=== PATIENT | female | born 1955 | race Caucasian/White ===

== ENCOUNTER 2016-04-11 15:39 | Inpatient (IN) | payer BC, OTHER ==
[~2016-04-11] VITALS: Ht 154.9 cm; Wt 50.2 kg
[2016-04-11 16:20] VITALS: BP 126/60; PULSE 100; RESP 13; TEMP 99.6; O2SAT 97
[2016-04-11] MEDS ORDERED: HYDR500C2 PO (16:30)
[2016-04-11] MEDS ORDERED: DEXI60CA PO (16:30)
[2016-04-11] MEDS ORDERED: SODIUM CHLORIDE 0.9% FLUSH 5 ML FLUSH IVF PRN (16:30)
[2016-04-11] MEDS ORDERED: PROT40TA PO (16:30)
--- NOTE | 2016-04-11 16:32 | PD ---
HPI Chief Complaint: Eye Problems/Injury Time Seen by Provider: 16:32 Travel History International Travel<30 days: No Contact w/Intl Traveler<30days: No Traveled to known affect area: No History of Present Illness HPI 60-year-old female with history of a clotting disorder similar to polycythemia vera, COPD, continues to smoke tobacco cigarettes, hypertension, PUD/gastritis, presents to emergency department for evaluation of acute painless blindness in her right eye at 3:30 today. 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 She denies any other focal deficits or weakness. Patient states she has had some nausea and vomiting over the last 3 days with a little bit of diarrhea. Nonbloody in nature. States that with her gastritis she does have episodes of vomiting since this caused her to not be concerned. Denies any chest pain or tightness. No difficulty breathing. No recent illnesses, fever, or chills. She has no other symptoms to report. PFS Past Medical History Blood Disorders: Yes COPD: Yes GERD: Yes Medical other: Yes (clotting disorder) ?: Not Social History Alcohol Use: No Tobacco Use: Yes (pack per day) Substance Use: No Allergies-Medications (Allergen,Severity, Reaction): Coded Allergies: Erythromycin (Verified Allergy, Unknown, 04/11/16) Penicillin (Verified Allergy, Unknown, 04/11/16) Sudafed (Verified Allergy, Unknown, 04/11/16) Reported Meds & Prescriptions Reported Meds & Active Scripts Active Reported Protonix (Pantoprazole Sodium) 40 Mg Tab 40 Mg PO DAILY Dexilant (Dexlansoprazole) 60 Mg Cap 60 Mg PO DAILY Hydroxyurea 500 Mg Cap 500 Mg PO DAILY Review of Systems Except as stated in HPI: all other systems reviewed are Neg Physical Exam Narrative GENERAL: Well-nourished female patient, a no acute distress SKIN: Warm and dry. HEAD: Atraumatic. Normocephalic. EYES: Pupils equal and round reactive. No scleral icterus. No injection or drainage. Assessment of the right eyes peripheral vision reveals patient unable to see midline peripherally. I am unable to do an adequate ophthalmic examination due to pupil constriction. ENT: No nasal bleeding or discharge. Mucous membranes pink and moist. NECK: Trachea midline. No JVD. CARDIOVASCULAR: Regular rate and rhythm. No murmur appreciated. RESPIRATORY: No accessory muscle use. Diminished, coarse cough to auscultation. Breath sounds equal bilaterally. GASTROINTESTINAL: Abdomen soft, non-tender, nondistended. Hepatic and splenic margins not palpable. MUSCULOSKELETAL: No obvious deformities. No clubbing. No cyanosis. No edema. NEUROLOGICAL: Awake and alert. No pronator drift. Equal strength bilaterally. Motor grossly within normal limits. Normal speech. PSYCHIATRIC: Appropriate mood and affect; insight and judgment normal. Data Data Last Documented VS Vital Signs Date Time Temp Pulse Resp B/P Pulse Ox O2 Delivery O2 Flow Rate FiO2 04/11/16 16:20 99.6 100 13 126/[address] Brain W/O Iv Contrast(Rout) (04/11/16 ) Electrocardiogram (04/11/16 16:28) Prothrombin Time / Inr (Pt) (04/11/16 16:28) Act Partial Throm Time (Ptt) (04/11/16 16:28) Complete Blood Count With Diff (04/11/16 16:28) Basic Metabolic Panel (Bmp) (04/11/16 16:28) Creatine Kinase (Cpk) (04/11/16 16:28) Troponin I (04/11/16 16:28) Urinalysis - C+S If Indicated (04/11/16 16:28) Ecg Monitoring (04/11/16 16:28) Iv Access Insert/Monitor (04/11/16 16:28) Oximetry (04/11/16 16:28) Sodium Chloride 0.9% Flush (Ns Flush) (04/11/16 16:30) Atropine 1% Opth Soln (Atropine 1% Opth (04/11/16 18:00) Aspirin (Aspirin) (04/11/16 18:15) Admit Order (Ed Use Only) (04/11/16 18:02) Consult Neurology (04/11/16 ) Heparin-D5w Inj (Heparin-D5w Inj) (04/11/16 18:15) Cbc No Diff, Includes Plts (04/14/16 06:00) (Hub Use Only)Inp Phy Cons/Ref (04/11/16 ) Consult Ophthalmology (04/13/16 ) Labs Laboratory Tests Test 04/11/16 16:59 White Blood Count 23.1 TH/MM3 Red Blood Count 4.31 MIL/MM3 Hemoglobin 15.6 GM/DL Hematocrit 47.3 % Mean Corpuscular Volume 109.5 FL Mean Corpuscular Hemoglobin 36.2 PG Mean Corpuscular Hemoglobin 33.0 % Concent Red Cell Distribution Width 15.2 % Platelet Count 443 TH/MM3 Mean Platelet Volume 7.9 FL Neutrophils (%) (Auto) 84.9 % Lymphocytes (%) (Auto) 6.7 % Monocytes (%) (Auto) 8.0 % Eosinophils (%) (Auto) 0.1 % Basophils (%) (Auto) 0.3 % Neutrophils # (Auto) 19.6 TH/MM3 Lymphocytes # (Auto) 1.5 TH/MM3 Monocytes # (Auto) 1.8 TH/MM3 Eosinophils # (Auto) 0.0 TH/MM3 Basophils # (Auto) 0.1 TH/MM3 CBC Comment DIFF FINAL Differential Comment Prothrombin Time 10.4 SEC Prothromb Time International 0.9 RATIO Ratio Activated Partial 28.9 SEC Thromboplast Time Sodium Level 138 MEQ/L Potassium Level 3.9 MEQ/L Chloride Level 104 MEQ/L Carbon Dioxide Level 26.3 MEQ/L Anion Gap 8 MEQ/L Blood Urea Nitrogen 20 MG/DL Creatinine 1.19 MG/DL Estimat Glomerular Filtration 46 ML/MIN Rate Random Glucose 97 MG/DL Calcium Level 8.9 MG/DL Total Creatine Kinase 53 U/L Troponin I 2.61 NG/ML MDM Medical Decision Making Medical Screen Exam Complete: Yes Emergency Medical Condition: Yes Medical Record Reviewed: Yes Differential Diagnosis TIA versus CVA versus retinopathy versus vaso-occlusive disease versus electrode abnormality versus neoplasm Narrative Course 60-year-old female presents to emergency department for evaluation. Patient appears without distress. She does have blindness of the right eye midline peripherally. She otherwise appears well. There are no other focal deficits or weakness. CT imaging of the brain is without acute intracranial abnormality. CBC is with leukocytosis of 23.1, platelet count 443, patient states that she always has leukocytosis. BMP is with mildly elevated creatinine 1.19 and GFR 46. Troponin is elevated at 2.61. EKG was normal sinus rhythm without any ST depression or elevation. I discussed the patient with my attending physician Dr. Whitfield he was also assessed the patient and reviewed lab findings. A call has been placed to neurology. Ophthalmology consult has been placed however coverage is not available until April 13. I spoke with Dr. Amaya, neurology on-call. He recommends a stroke workup, but not a stroke alert. He does not recommend TPA at this time. Patient will be started on heparin drip. I discussed the patient with Dr. valles. Patient will be admitted to [facility]. Diagnosis Primary Impression: Acute blindness Additional Impressions: Elevated troponin COPD (chronic obstructive pulmonary disease) Qualified Code: J44.9 - Chronic obstructive pulmonary disease, unspecified COPD type Tobacco abuse Admitting Information Admitting Physician Requests: Admit Condition: Stable Zoila Mckeon Apr 11, 2016 16:32
[2016-04-11 17:08] LABS: AUTOMATED NEUTROPHIL # 19.6 TH/MM3 (1.8-7.7); BASOPHIL # 0.1 TH/MM3 (0-0.2); BASOPHIL % 0.3 % (0.0-2.0); EOSINOPHIL % 0.1 % (0.0-4.0); HEMATOCRIT 47.3 % (35.0-46.0); HEMO FLAGS DIFF FINAL; LYMPH % 6.7 % (9.0-44.0); LYMPHOCYTE # 1.5 TH/MM3 (1.0-4.8); MEAN CELL VOLUME 109.5 FL (80.0-100.0); MEAN CORPUSCULAR HEMOGLOBIN 36.2 PG (27.0-34.0); NEUT % 84.9 % (16.0-70.0); PLATELET COUNT 443 TH/MM3 (150-450); RED BLOOD COUNT 4.31 MIL/MM3 (4.00-5.30); RED CELL DISTRIBUTION WIDTH 15.2 % (11.6-17.2); WHITE BLOOD COUNT 23.1 TH/MM3 (4.0-11.0)
[2016-04-11 17:22] LABS: APTT (PATIENT) 28.9 SEC (24.3-30.1); INTERNATIONAL NORMALIZED RATIO 0.9 RATIO; PROTHROMBIN TIME - PATIENT 10.4 SEC (9.8-11.6)
[2016-04-11 17:25] LABS: BICARBONATE 26.3 MEQ/L (21.0-32.0); POTASSIUM 3.9 MEQ/L (3.5-5.1)
--- NOTE | 2016-04-11 17:36 | RADRPT ---
EXAM DATE/TIME: 04/11/2016 17:17 [facility] COMPARISON: No previous studies available for comparison. INDICATIONS : Sudden onset of right sided blindness, now resolved. RADIATION DOSE: 56.35 CTDIvol (mGy) MEDICAL HISTORY : None SURGICAL HISTORY : None. ENCOUNTER: Initial ACUITY: 1 day PAIN SCALE: 0/10 LOCATION: cranial TECHNIQUE: Multiple contiguous axial images were obtained of the head. Using automated exposure control and adj ustment of the mA and/or kV according to patient size, radiation dose was kept as low as reasonably a chievable to obtain optimal diagnostic quality images. FINDINGS: CEREBRUM: The ventricles are normal for age. No evidence of midline shift, mass lesion, hemorrhage or acute in farction. No extra-axial fluid collections are seen. POSTERIOR FOSSA: The cerebellum and brainstem are intact. The 4th ventricle is midline. The cerebellopontine angle i s unremarkable. EXTRACRANIAL: The visualized portion of the orbits is intact. High right jugular bulb. SKULL: The calvaria is intact. No evidence of skull fracture. CONCLUSION: Negative noncontrast CT brain. Roldan Gregg MD on April 11, 2016 at 17:33 Board Certified Radiologist. This report was verified electronically.
[2016-04-11] MEDS ORDERED: ATROPINE SULFATE 1% OPHT SOLN 2 ML BTL EACH EYE ONE (18:00)
[2016-04-11] MEDS: ASPIRIN 325 MG TAB PO ONE ×2 (18:07→18:15)
[2016-04-11] MEDS ORDERED: HEPARIN-D5W INJ 250 ML IV SCH ×2 (18:15→18:30)
[2016-04-11] MEDS ORDERED: NALOXONE HCL 0.4 MG/ML AMP IV PRN (18:30)
[2016-04-11] MEDS ORDERED: ACETAMINOPHEN/HYDROcodone 325 MG/7.5 MG TAB PO PRN (18:30)
[2016-04-11] MEDS ORDERED: SODIUM CHLORIDE 0.9% FLUSH 5 ML FLUSH FLUSH PRN (18:30)
[2016-04-11] MEDS ORDERED: MORPHINE SULFATE 4 MG/ML INJ IV PRN (18:30)
[2016-04-11] MEDS ORDERED: ONDANSETRON HCL 4 MG/2 ML VIAL IVP PRN (18:30)
[2016-04-11] MEDS ORDERED: HEPARIN SODIUM - IV 10,000 UNITS/10 ML VIAL IV ONE (18:30)
[2016-04-11] MEDS ORDERED: DOCUSATE SODIUM 100 MG CAP PO PRN (18:30)
[2016-04-11] MEDS ORDERED: MAGNESIUM HYDROXIDE SUSP 30 ML CUP PO PRN (18:30)
[2016-04-11] MEDS ORDERED: ACETAMINOPHEN/HYDROcodone 325 MG/5 MG TAB PO PRN (18:30)
[2016-04-11] MEDS ORDERED: ENALAPRILAT 1.25 MG/ML VIAL IV PRN (18:45)
[2016-04-11 18:47] VITALS: BP 129/70; PULSE 85; RESP 17; O2SAT 97
--- NOTE | 2016-04-11 18:53 | HHI.HP ---
[facility] Primary Care Physician No Primary Care Physician Admission Diagnosis Acute R eye blindness; R/O CVA; NSTEMI Diagnoses: Chief Complaint: R eye blindness, nausea/diarrhea Travel History International Travel<30 Days: No Contact w/Intl Traveler <30 Da: No Traveled to Known Affected Are: No History of Present Illness 60-year-old female with history of polycythemia vera, hyperhomocystinemia, essential thrombocytopenia, GERD/gastritis, COPD, tobacco use, presents with acute onset of right eye blindness today. The patient reports she has chronic GI problems with nausea, however on Sunday 04/09, started having acute onset of nausea/vomiting/diarrhea and low back pain; no significant abdominal pain. She has been taking her Phenergan every 6 hours with some relief. 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 No eye pain and she has never had problems with her vision in the past. She denies any headache, lightheadedness, dizziness, slurred speech, unilateral numbness/weakness, or gait abnormalities. Since her arrival to the ER, head CT was unremarkable, however troponin 2.61, EKG negative for acute ischemic changes. The patient denies recalling any recent chest pains, palpitations, shortness of breath. She states her GI flareups are similar to this one. Her vision is slowly improving while in the ER, however still has a right sided visual deficit. She was previously on aspirin/Plavix, however this was stopped a few years ago and she now takes hydroxyurea. She follows with manual writer Dr. Leroy. She does not see any circus supervisor or neurologist. She has no other medical complaints at this time. Review of Systems Constitutional: DENIES: Diaphoretic episodes, Fatigue, Fever, Chills, Dizziness Endocrine: DENIES: Polydipsia, Polyuria, Polyphagia Eyes: COMPLAINS OF: Blurred vision, Vision loss, DENIES: Diplopia, Eye inflammation, Eye pain, Double Vision Ears, nose, mouth, throat: DENIES: Throat pain, Ear Pain, Running Nose, Odynophagia Respiratory: DENIES: Cough, Shortness of breath Cardiovascular: DENIES: Chest pain, Palpitations, Syncope, Lower Extremity Edema Gastrointestinal: COMPLAINS OF: Diarrhea, Nausea, Vomiting, DENIES: Abdominal pain, Constipation Genitourinary: DENIES: Urinary frequency, Urgency, Dysuria Musculoskeletal: COMPLAINS OF: Back pain, DENIES: Joint pain, Neck pain Integumentary: DENIES: Pruritus, Rash Hematologic/lymphatic: DENIES: Bruising, Lymphadenopathy Immunologic/allergic: DENIES: Eczema, Urticaria Neurologic: DENIES: Abnormal gait, Headache, Localized weakness, Paresthesias, Speech Problems Psychiatric: DENIES: Anxiety, Depression Past Family Social History Past Medical History polycythemia vera hyperhomocystinemia essential thrombocytopenia GERD/gastritis COPD Past Surgical History Umbilical hernia repair Colonoscopy in 2010 Breast implants Reported Medications Protonix (Pantoprazole Sodium) 40 Mg Tab 40 Mg PO DAILY Dexilant (Dexlansoprazole) 60 Mg Cap 60 Mg PO DAILY Hydroxyurea 500 Mg Cap 500 Mg PO DAILY Allergies: Coded Allergies: Erythromycin (Verified Allergy, Unknown, 04/11/16) Penicillin (Verified Allergy, Unknown, 04/11/16) Sudafed (Verified Allergy, Unknown, 04/11/16) Active Ordered Medications Current Medications Medications (Trade) Dose Ordered Sig/Nestor Route Start Time Stop Time Status Last Admin (NS Flush) 2 ml UNSCH PRN IVF 04/11/16 16:30 (Heparin Inj) 5,000 units UNSCH PRN IV 04/12/16 00:30 Heparin Sodium (Porcine) 2500 units 2,500 units UNSCH PRN IV 04/12/16 00:30 (Heparin-D5W Inj) 250 ml @ 0 mls/hr TITRATE IV 04/11/16 18:30 (NS Flush) 2 ml UNSCH PRN FLUSH 04/11/16 18:30 UNV Family History Mother with diabetes, obesity, heart problems Father with dysphagia requiring feeding tube Social History Smokes tobacco 1 PPD since age 15 Denies any alcohol or illicit drug use Physical Exam Vital Signs Vital Signs Date Time Temp Pulse Resp B/P Pulse Ox O2 Delivery O2 Flow Rate FiO2 04/11/16 16:20 99.6 100 13 126/60 97 Room Air Physical Exam GENERAL: Well-nourished, well-developed thin female patient in NAD. SKIN: Warm and dry. No rash. HEAD: Normocephalic. Atraumatic. EYES: Pupils equal and round. No scleral icterus. No injection or drainage. Right lateral eye visual field defect. EOMI. ENT: No nasal bleeding or discharge. Mucous membranes pink and moist. NECK: Supple. Trachea midline. CARDIOVASCULAR: Regular rate and rhythm. S1, S2 noted. No murmur appreciated. RESPIRATORY: No accessory muscle use. Clear to auscultation. Breath sounds equal bilaterally. GASTROINTESTINAL: Abdomen soft, non-tender, nondistended. Normoactive bowel sounds x4. MUSCULOSKELETAL: No obvious deformities. Extremities without clubbing, cyanosis , or edema. NEUROLOGICAL: Awake and alert. No obvious cranial nerve deficits. Motor grossly within normal limits. 5/5 muscle strength in bilateral upper and lower extremities. Normal speech. PSYCHIATRIC: Appropriate mood and affect; insight and judgment normal. Laboratory Laboratory Tests Test 04/11/16 16:59 White Blood Count 23.1 Red Blood Count 4.31 Hemoglobin 15.6 Hematocrit 47.3 Mean Corpuscular Volume 109.5 Mean Corpuscular Hemoglobin 36.2 Mean Corpuscular Hemoglobin 33.0 Concent Red Cell Distribution Width 15.2 Platelet Count 443 Mean Platelet Volume 7.9 Neutrophils (%) (Auto) 84.9 Lymphocytes (%) (Auto) 6.7 Monocytes (%) (Auto) 8.0 Eosinophils (%) (Auto) 0.1 Basophils (%) (Auto) 0.3 Neutrophils # (Auto) 19.6 Lymphocytes # (Auto) 1.5 Monocytes # (Auto) 1.8 Eosinophils # (Auto) 0.0 Basophils # (Auto) 0.1 CBC Comment DIFF FINAL Differential Comment Prothrombin Time 10.4 Prothromb Time International 0.9 Ratio Activated Partial 28.9 Thromboplast Time Sodium Level 138 Potassium Level 3.9 Chloride Level 104 Carbon Dioxide Level 26.3 Anion Gap 8 Blood Urea Nitrogen 20 Creatinine 1.19 Estimat Glomerular Filtration 46 Rate Random Glucose 97 Calcium Level 8.9 Total Creatine Kinase 53 Troponin I 2.61 Result Diagram: 04/11/16 1659 04/11/16 1659 Imaging Last Impressions Head CT 04/11/16 0000 Signed Impressions: Service Date/Time: Monday, April 11, 2016 17:17 - CONCLUSION: Negative noncontrast CT brain. Roldan Gregg MD Assessment and Plan Problem List: (1) Acute blindness ICD Code: H54.7 Status: Acute (2) Elevated troponin ICD Code: R79.89 Status: Acute (3) NSTEMI (non-ST elevated myocardial infarction) ICD Code: I21.4 Status: Acute (4) COPD (chronic obstructive pulmonary disease) ICD Code: J44.9 Status: Chronic (5) Tobacco abuse ICD Code: Z72.0 Status: Chronic Assessment and Plan 60-year-old female with history of polycythemia vera, hyperhomocystinemia, essential thrombocytopenia, GERD/gastritis, COPD, tobacco use, presents with acute onset of right eye blindness today 04/11 at 3:30pm. NSTEMI: no chest pains however troponin 2.61. EKG reviewed, no acute ST-T changes. Started on Heparin Drip. Admit to [facility]. Monitor on telemetry. Check serial cardiac enzymes and EKG. Lipid panel, HgbA1c. IV Morphine prn. Cardiology Consult. Acute renal failure: I am unable to find previous labs in the system. Probably secondary to dehydration. Will hydrate with IVF and follow BMP in AM. Right Eye Blindness: suspect CVA. Head CT images reviewed, unremarkable. Check Brain MRI and Carotid U/S. On Heparin drip as above. Consult neurology and consult ophthalmology. Neuro checks. NIHSS. Monitor on tele. Polycythemia vera, Hyperhomocystinemia, Essential thrombocytopenia: On hydroxyurea. Followed with Dr. Leroy as outpatient, will consult. Nausea/Vomiting/Diarrhea: acute on chronic GI upset per the patient. Continue PPI, antiemetics and pain control prn. Tobacco Use: counseled on cessation. Avoid nicotine patch due to vasoconstriction. DVT Prophylaxis: on Heparin drip Written by Ilsa Alvares, acting as scribe for Dr. De La Rosa on 04/11/16 at 18: 52. The documentation accurately reflects the work performed [id number] by me on 04/11/16 at 1852. Discussed Condition With Patient, Patient's spouse at bedside, ER FENG, SOLOMON KEARNEY Physician Certification 2 Midnight Certification Type: Admission for Inpatient Services Order for Inpatient Services The services are ordered in accordance with Medicare regulations or non- Medicare payer requirements, as applicable. In the case of services not specified as inpatient-only, they are appropriately provided as inpatient services in accordance with the 2-midnight benchmark. Estimated LOS (days): 3 days is the estimated time the patient will need to remain in the hospital, assuming treatment plan goals are met and no additional complications. Post-Hospital Plan: Home Problem Qualifiers (1) COPD (chronic obstructive pulmonary disease): Qualified Code: J44.9 - Chronic obstructive pulmonary disease, unspecified COPD type Ilsa Alvares PA-C Apr 11, 2016 18:53 Kuldeep De La Rosa MD Apr 11, 2016 19:24
--- NOTE | 2016-04-11 19:10 | PD ---
Physical Exam Date Seen by Provider: Apr 11, 2016 Time Seen by Provider: 17:30 Narrative I, Dr. Durant, have reviewed the advance practice practitioner's documentation and am in agreement, met with the patient face to face, made the diagnosis, and the medical decision making was done by me. *My assessment and Findings: Patient is seen and evaluated with nurse practitioner, please see practitioner note for further details. Here with painless vision loss in the lateral part of her visual field the right eye. Denies any chest pains or any other symptoms. Pulmonary cardiac enzymes are unremarkable. Pupils are equal, round, react to light bilaterally. Extraocular movements are intact. Laboratory Tests Test 04/11/16 16:59 White Blood Count 23.1 TH/MM3 (4.0-11.0) Hemoglobin 15.6 GM/DL (11.6-15.3) Hematocrit 47.3 % (35.0-46.0) Mean Corpuscular Volume 109.5 FL (80.0-100.0) Mean Corpuscular Hemoglobin 36.2 PG (27.0-34.0) Neutrophils (%) (Auto) 84.9 % (16.0-70.0) Lymphocytes (%) (Auto) 6.7 % (9.0-44.0) Neutrophils # (Auto) 19.6 TH/MM3 (1.8-7.7) Monocytes # (Auto) 1.8 TH/MM3 (0-0.9) Blood Urea Nitrogen 20 MG/DL (7-18) Creatinine 1.19 MG/DL (0.50-1.00) Estimat Glomerular Filtration 46 ML/MIN (>89) Rate Troponin I 2.61 NG/ML (0.02-0.05) Last [address] 04/11/16 0000 Signed Impressions: Service Date/Time: Monday, April 11, 2016 17:17 - CONCLUSION: Negative noncontrast CT brain. Roldan Gregg MD Exam is concerning for possible retinal pathology versus amaurosis fugax. Additional lab work returned showing a troponin elevations. EKG done did not show any signs of acute ST-T changes and there is no signs of dysrhythmias. At this point, case had been discussed with neurology, Dr. Amaya, and he states that he believes that this appears to be a ocular stroke like lesion and he recommends aspirin and heparin for further treatment. Ophthalmology consult. Case was discussed with Dr. Crenshaw for admission. Data Data Last Documented VS Vital Signs Date Time Temp Pulse Resp B/P Pulse Ox O2 Delivery O2 Flow Rate FiO2 04/11/16 16:20 99.6 100 13 126/[address] Brain W/O Iv Contrast(Rout) (04/11/16 ) Electrocardiogram (04/11/16 16:28) Prothrombin Time / Inr (Pt) (04/11/16 16:28) Act Partial Throm Time (Ptt) (04/11/16 16:28) Complete Blood Count With Diff (04/11/16 16:28) Basic Metabolic Panel (Bmp) (04/11/16 16:28) Creatine Kinase (Cpk) (04/11/16 16:28) Troponin I (04/11/16 16:28) Urinalysis - C+S If Indicated (04/11/16 16:28) Ecg Monitoring (04/11/16 16:28) Iv Access Insert/Monitor (04/11/16 16:28) Oximetry (04/11/16 16:28) Sodium Chloride 0.9% Flush (Ns Flush) (04/11/16 16:30) Atropine 1% Opth Soln (Atropine 1% Opth (04/11/16 18:00) Aspirin (Aspirin) (04/11/16 18:15) Admit Order (Ed Use Only) (04/11/16 18:02) Consult Neurology (04/11/16 ) Labs Laboratory Tests Test 04/11/16 16:59 White Blood Count 23.1 TH/MM3 Red Blood Count 4.31 MIL/MM3 Hemoglobin 15.6 GM/DL Hematocrit 47.3 % Mean Corpuscular Volume 109.5 FL Mean Corpuscular Hemoglobin 36.2 PG Mean Corpuscular Hemoglobin 33.0 % Concent Red Cell Distribution Width 15.2 % Platelet Count 443 TH/MM3 Mean Platelet Volume 7.9 FL Neutrophils (%) (Auto) 84.9 % Lymphocytes (%) (Auto) 6.7 % Monocytes (%) (Auto) 8.0 % Eosinophils (%) (Auto) 0.1 % Basophils (%) (Auto) 0.3 % Neutrophils # (Auto) 19.6 TH/MM3 Lymphocytes # (Auto) 1.5 TH/MM3 Monocytes # (Auto) 1.8 TH/MM3 Eosinophils # (Auto) 0.0 TH/MM3 Basophils # (Auto) 0.1 TH/MM3 CBC Comment DIFF FINAL Differential Comment Prothrombin Time 10.4 SEC Prothromb Time International 0.9 RATIO Ratio Activated Partial 28.9 SEC Thromboplast Time Sodium Level 138 MEQ/L Potassium Level 3.9 MEQ/L Chloride Level 104 MEQ/L Carbon Dioxide Level 26.3 MEQ/L Anion Gap 8 MEQ/L Blood Urea Nitrogen 20 MG/DL Creatinine 1.19 MG/DL Estimat Glomerular Filtration 46 ML/MIN Rate Random Glucose 97 MG/DL Calcium Level 8.9 MG/DL Total Creatine Kinase 53 U/L Troponin I 2.61 NG/ML [facility] Medical Record Reviewed: Yes Supervised Visit with JG: Yes Diagnosis Primary Impression: Acute blindness Additional Impressions: COPD (chronic obstructive pulmonary disease) Qualified Code: J44.9 - Chronic obstructive pulmonary disease, unspecified COPD type Tobacco abuse Elevated troponin Admitting Information Admitting Physician Requests: Admit Condition: Stable Tami Duarnt MD Apr 11, 2016 19:10
--- NOTE | 2016-04-11 19:34 | RADRPT ---
EXAM DATE/TIME: 04/11/2016 19:10 [facility] COMPARISON: CT BRAIN W/O CONTRAST, April 11, 2016, 17:17. INDICATIONS : Loss of vision right eye. MEDICAL HISTORY : SURGICAL HISTORY : Tubal ligation. Umbilical hernia repair. ENCOUNTER: Initial ACUITY: 1 day PAIN SCORE: 0/10 LOCATION: cranial TECHNIQUE: Multiplanar, multisequence MRI of the brain was performed without contrast. FINDINGS: Examination is abnormal demonstrating evidence of acute infarction involving the left paramedian occi pital lobe largest in the infracalcarine region. There is a focal area of restricted diffusion, but no significant signal change on T2 or T1 weighted scan. No evidence of blood products. No significa nt mass effect. The occipital horn of the ventricles are symmetric. No evidence of midline shift. No extra-axial fluid collections. The visualized structures of the orbits and paranasal sinuses are grossly intact the pituitary gland is normal in appearance. The posterior fossa structures are gross ly intact. 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 Roldan Gregg MD on April 11, 2016 at 19:28 Board Certified Radiologist. This report was verified electronically.
[2016-04-11] MEDS: PROMETHAZINE INJ 25 MG/ML VIAL IM PRN (19:51)
[2016-04-11] MEDS: SODIUM CHLOR 0.9% 1000 ML INJ 1,000 ML IV SCH (20:21)
[2016-04-11] MEDS: SODIUM CHLORIDE 0.9% FLUSH 5 ML FLUSH FLUSH SCH (20:22)
[2016-04-11 20:49] VITALS: BP 140/63; PULSE 78; RESP 18; O2SAT 98
[2016-04-11] MEDS ORDERED: PROM12.54 PO (20:55)
[2016-04-11] MEDS ORDERED: ATORVASTATIN 40 MG TAB PO SCH (21:00)
[2016-04-11 21:01] LABS: BACTERIA, URINE RARE /hpf; BLOOD, URINE TRACE (NEG); GLUCOSE,URINE NEG (NEG); KETONE, URINE 10 mg/dL (NEG); MUCUS URINE FEW /lpf (OCC); NITRITE,URINE NEG (NEG); PH, URINE 5.5 (5.0-8.5); SQUAMOUS EPITHELIAL CELL URINE 1 /hpf (0-5); URINE COLOR YELLOW (YELLW/STRAW)
[2016-04-11 21:06] LABS: COMMENT (UR) CATH-CULTURE IND; CULTURE IF INDICATED CATH CULTURE IND
--- NOTE | 2016-04-11 21:07 | EKG ---
Date Performed: 04/11/2016 Time Performed: 16:39:37 PTAGE: 60 years EKG: Sinus rhythm LEFT ATRIAL ENLARGEMENT NONSPECIFIC INFERIOR AND LATERAL ST DEPRESSION ABNORMAL ECG NO PREVIOUS TRACING DOCTOR: Romel Mohr Interpretating Date/Time 04/11/2016 21:06:26
--- NOTE | 2016-04-11 21:23 | RADRPT ---
EXAM DATE/TIME: 04/11/2016 20:02 [facility] COMPARISON: No previous studies available for comparison. INDICATIONS : Cerebrovascular accident. MEDICAL HISTORY : Gastroesophageal reflux disease. Chronic obstructive pulmonary disease. Clotting disorder. Right ey e vision loss. Gastritis. SURGICAL HISTORY : None. ENCOUNTER: Initial ACUITY: 1 day PAIN SCORE: 0/10 LOCATION: Bilateral neck PEAK SYSTOLIC VELOCITIES (cm/sec): ICA/CCA RATIO: Right: 1.1 Left: 1.6 ICA: Right: 97 Left: 133 CCA: Right: 87 Left: 81 ECA: Right: 121 Left: 111 VERTEBRAL: Right: 77 antegrade Left: 60 antegrade Elevated flow velocities and ICA/CCA ratios have been found to correlate with increased degrees of vessel stenosis, calculated as percentage of diameter relative to a normal segment of distal ICA/CCA FINDINGS: RIGHT CAROTID: No significant stenosis is visualized. There is a focal area of calcified plaque in the region of th e carotid bulb. The waveforms are within normal limits. LEFT CAROTID: No significant stenosis is visualized. The waveform is widened in the distal internal carotid artery with negative velocity components during systole.. VERTEBRAL ARTERIES: Antegrade flow is seen in both vertebral arteries. MISCELLANEOUS: None. CONCLUSION: Mild information right carotid bulb and noncalcified plaque in the left proximal carotid with hemodyn amic profile characteristic of less than 50% stenosis. Roldan Gregg MD on April 11, 2016 at 21:20 Board Certified Radiologist. This report was verified electronically.
[2016-04-12] VITALS (26 sets, daily range): BP systolic 120–139; BP diastolic 53–71; PULSE 62–83; RESP 16–18; TEMP 98–98.6; O2SAT 94–97
[2016-04-12] LABS: CREATINE KINASE 256 U/L (26-192)
[2016-04-12] MEDS ORDERED: HEPARIN SODIUM - IV 10,000 UNITS/10 ML VIAL IV PRN ×2 (00:30)
[2016-04-12] MEDS: PROMETHAZINE INJ 25 MG/ML VIAL IM PRN (00:45)
[2016-04-12 05:02] LABS: AUTOMATED NEUTROPHIL # 15.1 TH/MM3 (1.8-7.7); BASOPHIL # 0.3 TH/MM3 (0-0.2); BASOPHIL % 1.3 % (0.0-2.0); EOSINOPHIL # 0.1 TH/MM3 (0-0.4); EOSINOPHIL % 0.5 % (0.0-4.0); HEMATOCRIT 42.4 % (35.0-46.0); HEMO FLAGS DIFF FINAL; LYMPH % 13.2 % (9.0-44.0); LYMPHOCYTE # 2.6 TH/MM3 (1.0-4.8); MEAN CELL VOLUME 107.6 FL (80.0-100.0); MEAN CORPUSCULAR HEMOGLOBIN 36.2 PG (27.0-34.0); MEAN CORPUSCULAR HGB CONC 33.7 % (32.0-36.0); MONO % 9.7 % (0.0-8.0); NEUT % 75.3 % (16.0-70.0); PLATELET COUNT 421 TH/MM3 (150-450); RED BLOOD COUNT 3.94 MIL/MM3 (4.00-5.30); RED CELL DISTRIBUTION WIDTH 14.9 % (11.6-17.2)
[2016-04-12] MEDS: SODIUM CHLOR 0.9% 1000 ML INJ 1,000 ML IV SCH ×3 (05:30→23:18)
[2016-04-12 05:44] LABS: CHLORIDE 108 MEQ/L (98-107); POTASSIUM 3.8 MEQ/L (3.5-5.1); SODIUM (NA) 140 MEQ/L (136-145)
[2016-04-12 05:55] LABS: ALKALINE PHOSPHATASE 91 U/L (45-117); ALT (GPT) 12 U/L (10-53); ANION GAP 8 MEQ/L (5-15); AST (GOT) 18 U/L (15-37); BICARBONATE 23.7 MEQ/L (21.0-32.0); BLOOD UREA NITROGEN 15 MG/DL (7-18); CREATINE KINASE 283 U/L (26-192); GLOMERULAR FILTRATION RATE 56 ML/MIN (>89); HDL CHOLESTEROL 44.5 MG/DL (40.0-60.0); LDL CHOLESTEROL 120 MG/DL (0-99); TOTAL BILIRUBIN ADULT 1.2 MG/DL (0.2-1.0)
--- NOTE | 2016-04-12 06:10 | MB ---
cc: GENA WOO DATE OF CONSULTATION 04/11/2016 HISTORY OF PRESENT ILLNESS Ms. Mccauley is a 60-year-old white female with history of polycythemia vera, hyperhomocysteinemia, essential thrombocytopenia and gastroesophageal reflux disease, COPD, and smoking. She developed acute right eye blindness with the loss of right visual field. She has not had any chest pain, shortness of breath, dizziness, palpitations or peripheral edema. She has not had any previous cardiac history. Her troponin is elevated at 2.6. PAST MEDICAL HISTORY 1. Positive for polycythemia vera. 2. Hyperhomocysteinemia. 3. Essential thrombocythemia vera. 4. Gastroesophageal reflux disease. 5. Gastritis. 6. COPD. 7. Umbilical hernia repair. 8. Colonoscopy. 9. . 10. Breast implants. MEDICATIONS 1. Hydroxyurea. 2. Dexilant. 3. Protonix. ALLERGIES SUDAFED. PENICILLIN. ERYTHROMYCIN. SOCIAL HISTORY The patient smokes one pack per day since age 15. She does not drink alcohol. She lives at home with her . FAMILY HISTORY Positive for heart disease. REVIEW OF SYSTEMS Otherwise negative. PHYSICAL EXAMINATION VITAL SIGNS: Blood pressure 129/70, pulse 85 and regular. HEENT: Negative. NECK: 2+ carotid upstrokes. No bruits. LUNGS: Clear. HEART: Regular. No murmur, gallop or rub. ABDOMEN: Soft. No bruits. EXTREMITIES: Without edema. 2+ distal pulses. NEUROLOGIC: Grossly nonfocal. There is a right eye visual field deficit. EKG Reviewed and showed normal sinus rhythm, mild nonspecific ST changes. LABS Hemoglobin 15.6. Potassium 3.9, creatinine 1.2. CK 23. Troponin 2.6. DIAGNOSES 1. Acute blindness. 2. Non-ST elevation myocardial infarction. 3. COPD. 4. Smoking. 5. Polycythemia vera. 6. Essential thrombocytopenia. 7. Renal insufficiency. DISPOSITION 1. Ms. Mccauley will be monitored on telemetry. We will obtain serial enzymes and EKGs. We will obtain echocardiogram to evaluate her left ventricular function. 2. She will undergo neurologic evaluation. 3. She also was encouraged to quit smoking. 4. I will follow her for Cardiology during her hospitalization. 5. We will continue anticoagulation with IV heparin. MD WANDA Demarco/ETELVINA /7:33 PM /5:50 AM VICKI
[2016-04-12 06:22] LABS: CKMB 1.9 NG/ML (0.5-3.6)
--- NOTE | 2016-04-12 08:28 | EKG ---
Date Performed: 04/12/2016 Time Performed: 05:54:10 PTAGE: 60 years EKG: Sinus rhythm Inferior and anterior ST changes are nonspecific Borderline ECG PREVIOUS TRACING : 04/11/2016 23.11 No significant change from previous tracing noted. DOCTOR: Romel Mohr Interpretating Date/Time 04/12/2016 08:27:37
--- NOTE | 2016-04-12 08:32 | EKG ---
Date Performed: 04/11/2016 Time Performed: 23:11:16 PTAGE: 60 years EKG: Sinus rhythm POSSIBLE LEFT ATRIAL ENLARGEMENT NONSPECIFIC ST ABNORMALITY ABNORMAL ECG PREVIOUS TRACING : 04/11/2016 16.39 No significant change from previous tracing noted. DOCTOR: Romel Mohr Interpretating Date/Time 04/12/2016 08:30:21
[2016-04-12 08:55] LABS: AUTOMATED NEUTROPHIL # 15.1 TH/MM3 (1.8-7.7); BASOPHIL # 0.2 TH/MM3 (0-0.2); BASOPHIL % 0.8 % (0.0-2.0); EOSINOPHIL # 0.1 TH/MM3 (0-0.4); EOSINOPHIL % 0.3 % (0.0-4.0); HEMATOCRIT 44.6 % (35.0-46.0); HEMO FLAGS DIFF FINAL; LYMPHOCYTE # 1.9 TH/MM3 (1.0-4.8); MEAN CELL VOLUME 107.6 FL (80.0-100.0); MEAN CORPUSCULAR HEMOGLOBIN 36.8 PG (27.0-34.0); MEAN CORPUSCULAR HGB CONC 34.2 % (32.0-36.0); MONO % 7.7 % (0.0-8.0); NEUT % 81.2 % (16.0-70.0); PLATELET COUNT 441 TH/MM3 (150-450); RED BLOOD COUNT 4.15 MIL/MM3 (4.00-5.30); RED CELL DISTRIBUTION WIDTH 15.4 % (11.6-17.2); WHITE BLOOD COUNT 18.6 TH/MM3 (4.0-11.0)
[2016-04-12] MEDS ORDERED: NON-FORMULARY DRUG (Dexlansoprazole (Dexilant) 60 MG) PO SCH (09:00)
[2016-04-12] MEDS: SODIUM CHLORIDE 0.9% FLUSH 5 ML FLUSH FLUSH SCH ×2 (09:00→21:00)
--- NOTE | 2016-04-12 09:03 | RADRPT ---
EXAM DATE/TIME: 04/12/2016 08:45 [facility] COMPARISON: MRI BRAIN W/O CONTRAST, April 11, 2016, 19:10. CT BRAIN W/O CONTRAST, April 11, 2016, 17:17. INDICATIONS : Stroke alert. Right pupil fixation. RADIATION DOSE: 30.40 CTDIvol (mGy) MEDICAL HISTORY : Chronic obstructive pulmonary disease. SURGICAL HISTORY : section. ENCOUNTER: Initial ACUITY: 1 day PAIN SCALE: 0/10 LOCATION: Cranial TECHNIQUE: Multiple contiguous axial images were obtained of the head. Using automated exposure control and adj ustment of the mA and/or kV according to patient size, radiation dose was kept as low as reasonably a chievable to obtain optimal diagnostic quality images. FINDINGS: There is an evolving hemorrhage involving the left occipital lobe, CENSUS CLERK territory with some localized mass effect and edema without hemorrhage. The right hemisphere is unremarkable. The posterior fossa appears normal. CONCLUSION: Evolving nonhemorrhagic occipital infarct on the left. Findings were called to Dr. Jin at 08: 54 am. Raul Byrd MD FACR on April 12, 2016 at 8:52 Board Certified Radiologist. This report was verified electronically.
[2016-04-12 09:07] LABS: APTT (PATIENT) 28.3 SEC (24.3-30.1); INTERNATIONAL NORMALIZED RATIO 0.9 RATIO; PROTHROMBIN TIME - PATIENT 10.3 SEC (9.8-11.6)
[2016-04-12 09:50] LABS: CKMB 1.8 NG/ML (0.5-3.6)
[2016-04-12] MEDS ORDERED: LORazepam 1 MG TAB PO PRN (10:15)
--- NOTE | 2016-04-12 10:15 | HHI.PR ---
Subjective Remarks Patient seen in follow-up for acute CVA and elevated cardiac enzymes. This morning the patient was noted to have right fixed and dilated pupil. After discussion with RN. A stroke alert was called. We later discovered the patient had a dilated right eye exam in the emergency room. Objective Vitals Vital Signs Date Time Temp Pulse Resp B/P Pulse Ox O2 Delivery O2 Flow Rate FiO2 04/12/16 09:00 79 04/12/16 08:00 82 04/12/16 07:00 80 04/12/16 07:00 98.3 78 17 124/56 97 04/12/16 05:17 75 18 120/64 94 04/12/16 03:00 74 04/12/16 02:00 74 04/12/16 01:00 73 04/12/16 00:00 98.6 83 18 134/71 97 04/12/16 00:00 79 04/11/16 20:49 78 18 140/63 98 Room Air 04/11/16 18:47 85 17 129/70 97 Room Air 04/11/16 16:20 99.6 100 13 126/60 97 Room Air I/O 04/11/16 04/11/16 04/11/16 04/12/16 04/12/16 04/12/16 07:00 15:00 23:00 07:00 15:00 23:00 Intake Total 700 ml Balance 700 ml Intake Oral 150 ml IV Total 550 ml # Voids 1 3 Result Diagram: 04/12/16 0840 04/12/16 0450 Imaging Last Impressions Head CT 04/11/16 0000 Signed Impressions: Service Date/Time: Monday, April 11, 2016 17:17 - CONCLUSION: Negative noncontrast CT brain. Roldan Gregg MD Carotid Artery Ultrasound 04/11/16 0000 Signed Impressions: Service Date/Time: Monday, April 11, 2016 20:02 - CONCLUSION: Mild information right carotid bulb and noncalcified plaque in the left proximal carotid with hemodynamic profile characteristic of less than 50%% stenosis. Roldan Gregg MD Brain MRI 04/11/16 0000 Signed Impressions: Service Date/Time: Monday, April 11, 2016 19:10 - CONCLUSION: Evidence of nonhemorrhagic acute infarction involving the medial inferior left occipital lobe in the region of the visual cortex. Roldan Gregg MD Objective Remarks GENERAL: This is a well-nourished, well-developed patient, in no apparent distress. HEENT: Right pupil is ~6mm fixed and dilated. Right temporal visual field deficit. CARDIOVASCULAR: Normal rate and regular rhythm without murmurs, gallops, or rubs. RESPIRATORY: Good respiratory efforts. Breath sounds equal and clear to auscultation bilaterally. GASTROINTESTINAL: Abdomen soft, non-tender, non-distended. Normal active bowel sounds MUSCULOSKELETAL: Extremities without cyanosis, or edema. NEURO: Alert & Oriented x4 to person, place, time, situation. Moves all ext x4. Equal strength in all major muscle groups 5 out of 5. PSYCH: Appropriate mood and affect. A/P Problem List: (1) Acute blindness ICD Code: H54.7 Status: Acute (2) Elevated troponin ICD Code: R79.89 Status: Acute (3) NSTEMI (non-ST elevated myocardial infarction) ICD Code: I21.4 Status: Acute (4) COPD (chronic obstructive pulmonary disease) ICD Code: J44.9 Status: Chronic (5) Tobacco abuse ICD Code: Z72.0 Status: Chronic Assessment and Plan 60-year-old female with: Acute occipital lobe infarct: Patient presented with acute non-painful, nontraumatic right eye blindness. This morning she was noted to have a right dilated pupil. A stroke alert was called before we found out she had a dilated eye exam last night. Final head CT report is pending. I discussed with Neurology Dr. Jin who will review the images. - If no hemorrhage, would start Aspirin. NSTEMI: no chest pains however troponin elevated, 2.09 this AM. EKG reviewed, no acute ST changes. Started on Heparin Drip but patient refused. - Patient was evaluated by Cardiology. I discussed with Dr. Subramanian this morning who advised a nuclear stress test. Acute renal failure: I am unable to find previous labs in the system. Probably secondary to dehydration. Improving with IVF. Continue hydration with IVF and follow BMP in AM. Polycythemia vera, Hyperhomocystinemia, Essential thrombocytopenia: On hydroxyurea. Followed with Dr. Leroy as outpatient. Patient was on Aspirin and Plavix at some point. Consult Hematology for recs. Nausea/Vomiting/Diarrhea: acute on chronic GI upset per the patient. Continue PPI, antiemetics and pain control prn. Tobacco Use: counseled on cessation. DVT Prophylaxis: SCDs Problem Qualifiers (1) COPD (chronic obstructive pulmonary disease): Qualified Code: J44.9 - Chronic obstructive pulmonary disease, unspecified COPD type Kuldeep De La Rosa MD Apr 12, 2016 10:15
[2016-04-12] MEDS ORDERED: PROMETHAZINE HCL 25 MG TAB PO PRN (10:30)
[2016-04-12] MEDS: HYDROXYUREA 500 MG CAP PO SCH (10:31)
[2016-04-12] MEDS: PANTOPRAZOLE SOD 40 MG DELAYED RELEASE TAB PO SCH (10:32)
[2016-04-12] MEDS ORDERED: PILL SPLITTER OTHER PRN (12:00)
[2016-04-12] MEDS ORDERED: EPINEPHrine HCL (1:10,000) 1 MG/10 ML SYRINGE ONE (13:20)
[2016-04-12] MEDS ORDERED: ATROPINE SULFATE 1 MG/10 ML SYRINGE ONE (13:20)
--- NOTE | 2016-04-12 13:50 | EKG ---
Date Performed: 04/12/2016 Time Performed: 09:13:16 PTAGE: 60 years EKG: Sinus rhythm Inferior ST changes are nonspecific Borderline ECG PREVIOUS TRACING : 04/12/2016 05.54 No significant change from previous tracing noted. DOCTOR: Romel Mohr Interpretating Date/Time 04/12/2016 13:49:21
[2016-04-12] MEDS ORDERED: REGADENOSON INJ 0.4 MG/5 ML SYR ONE (14:13)
[2016-04-12] MEDS ORDERED: AMINOPHYLLINE INJ 250 MG/10 ML VIAL ONE (15:03)
--- NOTE | 2016-04-12 15:08 | MB ---
cc: SHANTEL MELTON MD DATE OF CONSULTATION: 04/12/2016 REASON FOR CONSULTATION Stroke alert. HISTORY OF PRESENT ILLNESS A 60-year-old female with past medical history of polycythemia vera, hyper-homocystinemia, essential thrombocytopenia, GERD/gastritis, COPD, tobacco abuse half pack a day, presented to the emergency room yesterday night with acute onset of right eye blindness. The patient states that on Sunday 04/09 she started having acute onset of nausea, vomiting, diarrhea with no significant abdominal pain as well as chest pain. She states that her right eye went completely blind. Denies any pain moving the eyes, slurred speech, headache, lightheadedness, double vision, numbness of the face, weakness of extremity. The patient stated that this is her first episode. Upon arrival to the emergency room the head CT scan was unremarkable. However, troponin was elevated at 2.61. EKG negative for acute ischemic changes. The right pupil was dilated while she was in the emergency room. The patient was previously on aspirin and Plavix. However, this was stopped a few years ago and she is currently on hydroxyurea. This morning a stroke alert was called by the nurse because she noticed unequal pupils, with no complaint from the patient. During initial assessment and review of the imaging, head CT scan and MRI revealed evidence of evolving non-hemorrhagic left occipital infarct. The patient is not a candidate for IV TPA since the patient did have a stroke in the past 8 hours prior to the new stroke alert call. REVIEW OF SYSTEMS A 12-point review of systems is negative except for what is stated in the HPI. PAST MEDICAL HISTORY 1. Polycythemia vera. 2. Hyper-homocystinemia. 3. Essential thrombocytopenia. 4. Gastroesophageal reflux disease. 5. COPD. PAST SURGICAL HISTORY 1. Umbilical hernia repair. 2. Colonoscopy 2010. 3. . 4. Breast implants. MEDICATIONS Reported medications: 1. Protonix. 2. Dexilant. 3. Hydroxyurea 500 mg daily. ALLERGIES ERYTHROMYCIN, PENICILLIN, SUDAFED. FAMILY HISTORY No family history of similar blood disorder. Mother with diabetes, obesity and heart problems. Father with dysphagia requiring feeding tube. SOCIAL HISTORY Smokes tobacco one-half pack per day since age 15. Denies alcohol or recreational drug use. PHYSICAL EXAMINATION GENERAL: Well-nourished, well-developed, not in acute distress but anxious. HEENT: Atraumatic, normocephalic. Normal hearing. Diminished vision on the right visual field NECK: Supple. No signs of esophageal irritation. No carotid bruits. CARDIOVASCULAR: Regular rate and rhythm. No murmur appreciated. RESPIRATORY: No accessory muscle use. Clear to auscultation. No wheezes. MUSCULOSKELETAL: Moves all extremities equally. No obvious deformity. No clubbing, cyanosis or edema. NEUROLOGIC: Awake, alert, oriented to time, person and place. Intact memory. Intact speech. Intact speech content. The right pupil is dilated 4 mm not reacting to light (s/p dilation at the ER). Diminished visual field on the right temporal field. Intact color vision. No diplopia. No nystagmus. Intact facial sensation, intact facial symmetry, intact elevation of the palate. Muscle strength 5/5 bilateral, symmetrical throughout. Normal tone. No abnormal movement. Sensation to light touch and temperature is normal, bilateral symmetrical. Reflexes 2+ bilateral and symmetrical. Plantars are bilaterally downgoing. Cerebellar function, [id number] and vevk-qt-mley are intact. PSYCHIATRY: Appropriate mood and affect. Insight and judgment are normal. No hallucinations. LABORATORY DATA WBC 23,000, hemoglobin 15.6, platelet count 443, INR 0.9, sodium 138, potassium 3.9, anion gap 8, BUN 20, creatinine 1.19, random glucose 97, calcium 8.9, troponin 2.61. DIAGNOSTIC IMAGING - Initial head CT scan on 04/11/2016 was reported as negative noncontrasted head CT scan. - Carotid ultrasound 04/11/2016 revealed mild right carotid bulb and noncalcified plaque in the left proximal carotid with hemodynamic profile characteristic of less than 50% stenosis, right carotid no significant stenosis is visualized. - MRI brain 04/11/2016 revealed evidence of non-hemorrhagic acute infarction involving the medial inferior left occipital lobe and the region of the visual cortex. - Repeat head CT scan on 04/12/2016 revealed evolving non hemorrhagic left occipital infarct. DIAGNOSTIC IMPRESSION 1. Acute ischemic infarct. 2. Left occipital infarction. 3. History of blood disorder/polycythemia. PLAN 1. Neuro checks q. 4 hourly. 2. Aspirin 81 mg. 3. Maintain blood pressure 135-140/75-80. 4. Cardiology recommendations appreciated given the elevated troponin. 5. Hematology recommendations are appreciated given the history of blood disorder. 6. There is no neurologic indication for heparinizing the patient, however, I talked to the attending physicians and I leave it to the discretion of the pneumatic tester mechanic, armhole baster jumpbasting & attending to start the patient on heparin if warranted for non-neurologic conditions. 7. DVT prophylaxis with SCDs. 8. PT, OT recommendations are appreciated. 9. Swallow test at bedside. Thank you for the opportunity to participate in the care of your patient. MD VAN Lancaster/SANTANA /10:38 AM /2:34 PM VICKI
--- NOTE | 2016-04-12 15:32 | RADRPT ---
EXAM DATE/TIME: 04/12/2016 13:44 [facility] COMPARISON: No previous studies available for comparison. INDICATIONS : Acute myocardial infarction. Myocardial infarction. DOSE: 25.4 mCi Tc99m Myoview at stress. 8.3 mCi Tc99m Myoview at rest. 0.4 mg Lexiscan STRESS SYMPTOMS: Dyspnea and nausea. EJECTION FRACTION: 62% MEDICAL HISTORY : Chronic obstructive pulmonary disease. Renal insufficiency. Gastroesophageal reflux disease. Polycyth emia vera, essential thrombocytopenia. SURGICAL HISTORY : section. Colonscopy and breast implants. ENCOUNTER: Initial ACUITY: 1 day PAIN SCALE: 0/10 LOCATION: Substernal chest TECHNIQUE: The patient underwent pharmacologic stress with infusion of prescribed dose. Continuous ECG tracing was monitored during stress. Gated SPECT imaging was performed after stress and conventional SPECT i maging was performed at rest. The examination was performed on a SPECT/CT scanner, both attenuation and non-corrected datasets were reviewed. FINDINGS: DISTRIBUTION: The maximum perfused segment at stress is in the inferior wall. PERFUSION STUDY: The pattern of perfusion at stress is within normal limits with the exception of a defect over the an terolateral chest characteristics of a breast implant. GATED STUDY: There is intact wall motion and thickening without hypokinetic or dyskinetic segments. CONCLUSION: 1. Unremarkable myocardial perfusion scan. RISK CATEGORY: Low (<1% Annual Mortality Rate)3 Matthew Sam MD on April 12, 2016 at 15:27 Board Certified Radiologist. This report was verified electronically.
[2016-04-12] MEDS: ASPIRIN EC 81 MG TABEC PO SCH (16:59)
[2016-04-12] MEDS: PROMETHAZINE HCL 25 MG TAB PO PRN (16:59)
--- NOTE | 2016-04-12 17:16 | EC ---
Study Study Date:04/12/2016 STUDY CONCLUSIONS SUMMARY - Left ventricle: The cavity size was normal. Wall thickness was at the upper limits of normal. Systolic function was normal. The estimated ejection fraction was in the range of 55% to 60%. Wall motion was normal; there were no regional wall motion abnormalities. - Aortic valve: Valve area: 2.27cm^2 (Vmax). - Mitral valve: Mild regurgitation. - Tricuspid valve: Mild regurgitation. If LV function is below 40, please consider prescribing an ACEI or ARB or document rationale for non-use. PROCEDURE DATA STUDY STATUS: Elective. Procedure: Transthoracic echocardiography. Image quality was good. Scanning was performed from the parasternal, apical, and subcostal acoustic windows. Study completion: The patient tolerated the procedure well. Transthoracic echocardiography. M-mode, complete 2D, complete spectral Doppler, and color Doppler. Patient status: Inpatient. CARDIAC ANATOMY LEFT VENTRICLE: The cavity size was normal. Wall thickness was at the upper limits of normal. Systolic function was normal. The estimated ejection fraction was in the range of 55% to 60%. Wall motion was normal; there were no regional wall motion abnormalities. AORTIC VALVE: Trileaflet; normal thickness leaflets. Doppler: Transvalvular velocity was within the normal range. There was no stenosis. No regurgitation. Valve area: 2.27cm^2 (Vmax). AORTA: Aortic root: The aortic root was normal in size. MITRAL VALVE: Structurally normal valve. Doppler: Transvalvular velocity was within the normal range. There was no evidence for stenosis. Mild regurgitation. LEFT ATRIUM: The atrium was normal in size. RIGHT VENTRICLE: The cavity size was normal. Wall thickness was normal. PULMONIC VALVE: Doppler: Transvalvular velocity was within the normal range. There was no evidence for stenosis. No regurgitation. TRICUSPID VALVE: Structurally normal valve. Doppler: Transvalvular velocity was within the normal range. Mild regurgitation. PULMONARY ARTERY: The main pulmonary artery was normal-sized. Systolic pressure was within the normal range. RIGHT ATRIUM: The atrium was normal in size. PERICARDIUM: There was no pericardial effusion. SYSTEMIC VEINS: Inferior vena cava: The vessel was normal in size. BASIC MEASUREMENTS ADULT NORMAL Left ventricle LV internal dimension, ED, chordal level, *42.9 mm 43-52 PLAX LV internal dimension, ES, chordal level, 31.7 mm 23-38 PLAX Fractional shortening, chordal level, PLAX *26 % >29 LV posterior wall thickness, ED 5.79 mm IVS/LVPW ratio, ED 1.09 <1.3 Ventricular septum Septal thickness, ED 6.29 mm Aortic valve Leaflet separation 21 mm 15-26 BASIC MEASUREMENTS ADULT NORMAL Aortic valve Leaflet separation 21 mm 15-26 Aorta Root diameter, ED 23 mm 20-37 Left atrium Anterior-posterior dimension, ES 28 mm 19-40 LA/aortic root ratio 1.22 DOPPLER MEASUREMENTS ADULT NORMAL Main pulmonary artery Pressure, S 16 mm Hg =30 Aortic valve Peak velocity, S 110 cm/s Valve area, Vmax 2.27 cm^2 Mitral valve Peak E-wave velocity 64.2 cm/s Peak A-wave velocity 93.8 cm/s Deceleration time 169 ms 150-230 Peak E/A ratio 0.7 Maximal regurgitant velocity 362 cm/s Tricuspid valve Regurgitant peak velocity 175 cm/s Peak RV-RA gradient, S 12 mm Hg Maximal regurgitant velocity 175 cm/s Systemic veins Estimated CVP 10 mm Hg Right ventricle RV pressure, S 22 mm Hg <30 Pulmonic valve Peak velocity, S 122 cm/s LEGEND: Mean values are shown as u=mean value. Asterisk (*) ledezma values outside specified normal range. Prepared and signed by Marvin Bowen [id number]
--- NOTE | 2016-04-12 19:16 | RADRPT ---
EXAM DATE/TIME: 04/12/2016 18:20 [facility] COMPARISON: No previous studies available for comparison. INDICATIONS : Stroke. MEDICAL HISTORY : Thrombocytopenia. SURGICAL HISTORY : Inguinal hernia repair. ENCOUNTER: Initial ACUITY: 2 day PAIN SCORE: 0/10 LOCATION: head. Please note a normal MRA of the brain does not entirely exclude the possibility of a small aneurysm, nor the possibility of distal intracranial vessel disease. TECHNIQUE: 3D time of flight MRA was performed. Source images, multiplanar STS MIP, and 3D volume MIP reconstru ctions were reviewed. FINDINGS: There is excellent visualization of the major intracranial arteries out to the second-order branch ve ssels. There is truncation of the distal branches of the left posterior cerebral artery which correla nettie with the area of infarction on recent MRI. CONCLUSION: 1. Truncation of the left distal posterior cerebral artery branches correlating with the area of rece nt infarction on MRI brain. Anterior and middle cerebral arteries and right posterior cerebral artery are patent. Manny Kendrick MD on April 12, 2016 at 19:10 Board Certified Radiologist. This report was verified electronically.
[2016-04-13] VITALS (19 sets, daily range): BP systolic 113–126; BP diastolic 49–68; PULSE 56–77; RESP 17–18; TEMP 97.7–98.4; O2SAT 94–100
[2016-04-13] MEDS: ACETAMINOPHEN 325 MG TAB PO PRN ×2 (00:32→09:24)
[2016-04-13 06:52] LABS: HEMATOCRIT 42.7 % (35.0-46.0); MEAN CELL VOLUME 108.8 FL (80.0-100.0); MEAN CORPUSCULAR HEMOGLOBIN 35.8 PG (27.0-34.0); MEAN CORPUSCULAR HGB CONC 32.9 % (32.0-36.0); PLATELET COUNT 407 TH/MM3 (150-450); RED BLOOD COUNT 3.92 MIL/MM3 (4.00-5.30); RED CELL DISTRIBUTION WIDTH 14.9 % (11.6-17.2); REVIEW FLAG FINAL; WHITE BLOOD COUNT 13.8 TH/MM3 (4.0-11.0)
[2016-04-13 07:08] LABS: BICARBONATE 28.2 MEQ/L (21.0-32.0); POTASSIUM 3.7 MEQ/L (3.5-5.1)
[2016-04-13] MEDS: ASPIRIN EC 81 MG TABEC PO SCH (09:24)
[2016-04-13] MEDS: PANTOPRAZOLE SOD 40 MG DELAYED RELEASE TAB PO SCH (09:24)
[2016-04-13] MEDS: SODIUM CHLORIDE 0.9% FLUSH 5 ML FLUSH FLUSH SCH (09:24)
[2016-04-13] MEDS: PROMETHAZINE HCL 25 MG TAB PO PRN (09:28)
[2016-04-13] MEDS: HYDROXYUREA 500 MG CAP PO SCH (09:31)
--- NOTE | 2016-04-13 11:24 | MB ---
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 TREATMENT HISTORY After her initial diagnosis in 2009, the patient has been on hydroxyurea 500 mg daily. PROGNOSTICATION The patient has high risk disease; based on her age of 60 or greater and history of recurrent arterial thromboses as well as positivity for the POLLY-2 mutation. CHIEF COMPLAINT Sudden onset of visual field deficit involving the left eye entirely. HISTORY OF PRESENT ILLNESS Ms. Pierce is a 60-year-old female who reportedly was diagnosed with myeloproliferative neoplasm in 2009 when she developed a "clot" in her in her foot. She underwent a bone marrow biopsy along with POLLY-2 mutation analysis at the time of diagnosis at [facility] under the care of Dr. Gtz ([place] [facility] specialist). She was subsequently initiated on hydroxyurea, as well as an antiplatelet agent aspirin. Over the past seven years or so she has been on and off aspirin and Plavix, but over the past several months, perhaps a year and half or so she has not been on any antiplatelet therapy. Her only treatment has been hydroxyurea. 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 She developed these symptoms of visual field deficit and presented to the emergency department. Imaging studies of the head including CT scans, MRIs and MRA's revealed findings consistent with an evolving ischemic stroke of the medial/inferior left occipital lobe in the region of the visual cortex. MRA of the head done on 04/12/2016 reveals truncation of the left distal posterior cerebral artery branches correlated with the area of recent infarction on the MRI of the brain. She has been initiated now on low-dose aspirin 81 mg once daily. Her platelet counts are within normal limits. The oncology service has been consulted for further workup and evaluation. PAST MEDICAL HISTORY 1. History of arterial thrombosis in the right foot. 2. History of myeloproliferative neoplasm; most consistent with ET. 3. Active tobaccoism. 4. COPD 5. Gastritis 6. Hyper-homocystinemia 7. Hypertension 8. Osteoarthritis 9. Osteoporosis 10. Gastroesophageal reflux disease PAST SURGICAL HISTORY 1. Colonoscopy 2. Hernia repair 3. Breast augmentation GYNECOLOGIC HISTORY 2, para 2. Postmenopausal. FAMILY HISTORY Cardiovascular disease and diabetes on the mother's side. No oncologic diagnoses. SOCIAL HISTORY , lives at home with her . She is originally from [place]. She is an active drinker. She is a nurse. ALLERGIES ERYTHROMYCIN, JOO, PENICILLIN, SUDAFED. CURRENT INPATIENT MEDICATIONS 1. Aspirin 81 mg once daily 2. Hydrocodone/acetaminophen 3. Colace 100 mg p.o. q12 hours 4. Hydroxyurea 500 mg a day 5. Promethazine 25 mg p.o. q6h as needed for nausea and vomiting. REVIEW OF SYSTEMS A 13-point review of systems is obtained the following are the pertinent positives: The patient reports improvement in her visual field deficit and right eye. She reports that she is no longer blind in the right eye. She reports that she is no longer blind in the right eye and she is able to see mostly out of the right eye except for a quadrant in the upper outer area of the visual field. She denies fevers, chills, or night sweats. Her appetite has been good. HEENT: No other complaints. RESPIRATORY: No complaints of difficulty breathing, cough or hemoptysis. CARDIOVASCULAR: Denies angina-like chest pain, PND, orthopnea. GI: Gastritis. Denies nausea, vomiting, diarrhea, hematochezia or melena. : No complaints. MUSCULOSKELETAL: No complaints. HEALTH MAINTENANCE Has not had a mammogram in over 10 years. Continues to smoke and has had one lifetime colonoscopy which was about 10 years ago. She tells me she was told by her spiral winding machine helper that she never needed a colonoscopy again. PHYSICAL EXAMINATION VITAL SIGNS: Temperature 97.8 degrees Fahrenheit, heart rate ranges between 55 and 75 beats a minute, blood pressure 113/49, O2 sats are 97% on room air. GENERAL PHYSICAL APPEARANCE: Ms. Davies is a middle-aged female, she is laying in bed. She is alert and oriented x3. She is in no acute distress. HEENT: Head atraumatic, normocephalic, conjunctive a non pale. The left eye is round and reactive, the right eye has a dilated pupil. Sclerae are anicteric, EOMI, PERRLA, oral exam no pharyngeal erythema. NECK: No palpable cervical or supraclavicular lymphadenopathy. RESPIRATORY: Good air movement bilaterally with crepitus and expiratory wheezes. CARDIOVASCULAR: Regular rate and rhythm, S1-S2. No obvious murmurs, gallops. ABDOMEN: Thin belly soft, nontender, nondistended, no palpable organ enlargement. LOWER EXTREMITIES: No pretibial edema. No calf tenderness. OUTSIDE CUTTER HAND: No focal sensory or motor deficits other than visual field deficit in the upper outer quadrant of the right visual field. LABORATORY FINDINGS Blood work dated 04/12/2016: Sodium 140, potassium 4, chloride 105, BUN 16, creatinine 1.1, glucose 92. Calcium 8.3, total bilirubin 1.2, AST 18, ALT 12, alkaline phosphatase 91, albumin 2.8. CBC dated 04/12/2016: WBC count 18.6, hemoglobin 15.3 gm/dl, hematocrit 44.6%, MCV 107, RDW 15.4, platelet count for 441, absolute neutrophil count 15.1. IMAGING STUDIES MRI of the brain dated 04/11/2016: 1. Evidence of non-hemorrhagic acute infarction involving the middle inferior left occipital lobe in the region of the visual cortex. MRA of the brain dated 04/12/2016: 1. Truncation of the left distal posterior cerebral artery branches correlating with the area of the recent infarction of the MRI brain. Ultrasound of the carotid arteries dated 04/11/2016: 1. Non-calcified plaque in the left proximal carotid with hemodynamic profile characteristic of less than 50% stenosis. 2. Right carotid, no significant stenosis identified. There is A focal area of calcified plaque in the region of the carotid bulb. The way forms are within normal limits. ASSESSMENT Ms. Davies is a 60-year-old female with a confirmed diagnosis of a POLLY-2 mutation positive myeloproliferative neoplasm; the history, blood work profile is most consistent with essential thrombocythemia. She has had fairly well controlled platelet counts on hydroxyurea 500 mg once daily. Her diagnosis was initially established in 2009 after she developed an arterial thrombosis involving her foot. This patient does have high risk disease based on her age, history of recurrent arterial thromboses and positive POLLY-2 mutation. Based on current recommendations, she is a candidate for continuation of hydroxyurea therapy, as well as continuation of intermediate dose aspirin; a recommended dose would be 81 mg twice daily or 162 mg once a day. I do not feel it is necessary in this situation to initiate her on therapeutic anticoagulation with Warfarin, Eliquis or Xarelto. Smoking: I had a long discussion with this patient about her smoking habit. I did explain to the patient that both her essential thrombocythemia and her smoking are both risk factors for recurrent arterial thromboses. I also explain to her that it is absolutely imperative that she stop smoking and make the very sincere effort to do so. I have explained to her that per the CDC guidelines and CDC's research one out of two to one out of three individuals who smoke, will with a smoking related medical issue whether it is cardiovascular or cancer related. Ms. Pierce became quite agitated with me when I did speak to her about this in a matter of fact way and told me that I should limit my discussion to my field of specialty which is her hematologic disorder. DISPOSITION I feel the patient is ready for discharge when cleared by cardiology and neurology; I would continue her hydroxyurea 500 mg once daily along with intermediate dose aspirin at 81 mg twice daily or 162 mg once daily. She may choose to follow up with me if she prefers at my [place] office in the upcoming weeks. MD ASHLEY Camejo/KALEB /7:23 AM /10:56 AM
[2016-04-13] MEDS ORDERED: ASPI81CH CHEW (12:58)
--- NOTE | 2016-04-13 13:00 | HHI.DCPOC ---
Discharge Care Plan Diagnosis: (1) Stroke (2) Acute blindness (3) Elevated troponin (4) Tobacco abuse (5) POLLY-2 gene mutation (6) Essential thrombocythemia Goals to Promote Your Health * To prevent worsening of your condition and complications * To maintain your health at the optimal level Directions to Meet Your Goals Take your medications as prescribed Follow your dietary instruction Follow activity as directed Keep your appointments as scheduled Take your immunizations and boosters as scheduled If your symptoms worsen call your PCP, if no PCP go to Urgent Care Center or Emergency Room Smoking is Dangerous to Your Health. Avoid second hand smoke Call the 24-hour hour crisis hotline for domestic abuse at Kuldeep De La Rosa MD Apr 13, 2016 13:00
--- NOTE | 2016-04-13 13:01 | HHI.DS ---
Discharge Summary Admission Date Apr 11, 2016 at 18:05 Discharge Date: Apr 13, 2016 Admitting Diagnosis Acute R eye blindness; R/O CVA; NSTEMI (1) Acute blindness ICD Code: H54.7 (2) Elevated troponin ICD Code: R79.89 (3) NSTEMI (non-ST elevated myocardial infarction) ICD Code: I21.4 (4) COPD (chronic obstructive pulmonary disease) ICD Code: J44.9 (5) Tobacco abuse ICD Code: Z72.0 Procedures None Brief History - From Admission 60-year-old female with history of polycythemia vera, hyperhomocystinemia, essential thrombocytopenia, GERD/gastritis, COPD, tobacco use, presents with acute onset of right eye blindness today. The patient reports she has chronic GI problems with nausea, however on Sunday 04/09, started having acute onset of nausea/vomiting/diarrhea and low back pain; no significant abdominal pain. She has been taking her Phenergan every 6 hours with some relief. 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 No eye pain and she has never had problems with her vision in the past. She denies any headache, lightheadedness, dizziness, slurred speech, unilateral numbness/weakness, or gait abnormalities. Since her arrival to the ER, head CT was unremarkable, however troponin 2.61, EKG negative for acute ischemic changes. The patient denies recalling any recent chest pains, palpitations, shortness of breath. She states her GI flareups are similar to this one. Her vision is slowly improving while in the ER, however still has a right sided visual deficit. She was previously on aspirin/Plavix, however this was stopped a few years ago and she now takes hydroxyurea. She follows with filter tank tender Dr. Leroy. She does not see any programmer analyst or neurologist. She has no other medical complaints at this time. CBC/BMP: 04/13/16 0540 04/13/16 0540 Significant Findings Laboratory Tests Test 04/11/16 04/11/16 04/11/1604/12/17 16:59 20:30 23:00 04:50 White Blood Count 23.1 TH/MM3 20.0 TH/MM3 (4.0-11.0) (4.0-11.0) Hemoglobin 15.6 GM/DL (11.6-15.3) Hematocrit 47.3 % (35.0-46.0) Mean Corpuscular Volume 109.5 FL 107.6 FL (80.0-100.0) (80.0-100.0) Mean Corpuscular Hemoglobin 36.2 PG 36.2 PG (27.0-34.0) (27.0-34.0) Neutrophils (%) (Auto) 84.9 % 75.3 % (16.0-70.0) (16.0-70.0) Lymphocytes (%) (Auto) 6.7 % (9.0-44.0) Neutrophils # (Auto) 19.6 TH/MM3 15.1 TH/MM3 (1.8-7.7) (1.8-7.7) Monocytes # (Auto) 1.8 TH/MM3 2.0 TH/MM3 (0-0.9) (0-0.9) Blood Urea Nitrogen 20 MG/DL (7-18) Creatinine 1.19 MG/DL 1.01 MG/DL (0.50-1.00) (0.50-1.00) Estimat Glomerular Filtration 46 ML/MIN (>89) 56 ML/MIN (>89) Rate Troponin I 2.61 NG/ML 2.02 NG/ML 1.92 NG/ML (0.02-0.05) (0.02-0.05) (0.02-0.05) Urine Protein 30 mg/dL (NEG-TRACE) Urine Ketones 10 mg/dL (NEG) Urine Occult Blood TRACE (NEG) Urine Leukocyte Esterase SMALL (NEG) Urine RBC 11 /hpf (0-3) Urine WBC 6 /hpf (0-5) Urine Bacteria RARE /hpf (NONE) Urine Mucus FEW /lpf (OCC) Total Creatine Kinase 256 U/L 283 U/L (26-192) (26-192) Red Blood Count 3.94 MIL/MM3 (4.00-5.30) Monocytes (%) (Auto) 9.7 % (0.0-8.0) Basophils # (Auto) 0.3 TH/MM3 (0-0.2) Chloride Level 108 MEQ/L (98-107) Calcium Level 8.3 MG/DL (8.5-10.1) Total Bilirubin 1.2 MG/DL (0.2-1.0) Total Protein 6.3 GM/DL (6.4-8.2) Albumin 2.8 GM/DL (3.4-5.0) LDL Cholesterol 120 MG/DL (0-99) Test 04/12/16 04/13/16 08:40 05:40 White Blood Count 18.6 TH/MM3 13.8 TH/MM3 (4.0-11.0) (4.0-11.0) Mean Corpuscular Volume 107.6 FL 108.8 FL (80.0-100.0) (80.0-100.0) Mean Corpuscular Hemoglobin 36.8 PG 35.8 PG (27.0-34.0) (27.0-34.0) Neutrophils (%) (Auto) 81.2 % (16.0-70.0) Neutrophils # (Auto) 15.1 TH/MM3 (1.8-7.7) Monocytes # (Auto) 1.4 TH/MM3 (0-0.9) Fibrinogen 539 mg/dL (227-377) Bedside Creatinine 1.1 MG/DL (0.6-1.0) Total Creatine Kinase 268 U/L (26-192) Troponin I 2.06 NG/ML (0.02-0.05) Red Blood Count 3.92 MIL/MM3 (4.00-5.30) Creatinine 1.18 MG/DL (0.50-1.00) Estimat Glomerular Filtration 47 ML/MIN (>89) Rate Calcium Level 8.4 MG/DL (8.5-10.1) Imaging Last Impressions Myocardial Perfusion Scan Nuc Med 04/12/16 0000 Signed Impressions: Service Date/Time: Tuesday, April 12, 2016 13:44 - CONCLUSION: 1. Unremarkable myocardial perfusion scan. RISK CATEGORY: Low (<1%% Annual Mortality Rate)3 Matthew Sam MD Head Magnetic Resonance Angiography 04/12/16 0000 Signed Impressions: Service Date/Time: Tuesday, April 12, 2016 18:20 - CONCLUSION: 1. Truncation of the left distal posterior cerebral artery branches correlating with the area of recent infarction on MRI brain. Anterior and middle cerebral arteries and right posterior cerebral artery are patent. Manny Kendrick MD Head CT 04/12/16 0000 Signed Impressions: Service Date/Time: Tuesday, April 12, 2016 08:45 - CONCLUSION: Evolving nonhemorrhagic occipital infarct on the left. Findings were called to Dr. Jin at 08: 54 am. Raul Byrd MD FACR Carotid Artery Ultrasound 04/11/16 0000 Signed Impressions: Service Date/Time: Monday, April 11, 2016 20:02 - CONCLUSION: Mild information right carotid bulb and noncalcified plaque in the left proximal carotid with hemodynamic profile characteristic of less than 50%% stenosis. Roldan Gregg MD Brain MRI 04/11/16 0000 Signed Impressions: Service Date/Time: Monday, April 11, 2016 19:10 - CONCLUSION: Evidence of nonhemorrhagic acute infarction involving the medial inferior left occipital lobe in the region of the visual cortex. Roldan Gregg MD PE at Discharge GENERAL: This is a well-nourished, well-developed patient, in no apparent distress. HEENT: Right pupil is ~6mm fixed and dilated. Right temporal visual field deficit. CARDIOVASCULAR: Normal rate and regular rhythm without murmurs, gallops, or rubs. RESPIRATORY: Good respiratory efforts. Breath sounds equal and clear to auscultation bilaterally. GASTROINTESTINAL: Abdomen soft, non-tender, non-distended. Normal active bowel sounds MUSCULOSKELETAL: Extremities without cyanosis, or edema. NEURO: Alert & Oriented x4 to person, place, time, situation. Moves all ext x4. Equal strength in all major muscle groups 5 out of 5. PSYCH: Appropriate mood and affect. Pt update on day of discharge Patient reports that she is feeling better. She believes the right eye vision is improving. Hospital Course 60-year-old female admitted with acute occipital lobe infarct noted troponins. Evaluation and treatment course detailed below: Acute occipital lobe infarct: Patient presented with acute non-painful, nontraumatic right eye blindness. Imaging findings detailed above. The patient was followed by neurology. Recommendation was to start her on aspirin. Patient counseled to quit smoking. Elevated troponin on presentation, no chest pain or shortness of breath.. EKG reviewed, no acute ST changes. Patient was started on heparin drip however she refused it. The patient was divided by cardiology and underwent a nuclear stress test which was negative. The patient again is advised to quit smoking and continue aspirin Acute renal failure: I am unable to find previous labs in the system. Probably secondary to dehydration. This resolved with IV fluid. Polycythemia vera, Hyperhomocystinemia, Essential thrombocytopenia: On hydroxyurea. Followed with Dr. Leroy as outpatient. Patient was on Aspirin and Plavix at some point. Hematology was consulted who recommended to continue aspirin at a dose of 162 mg daily and continue hydroxyurea. Again the patient is advised to quit smoking. Nausea/Vomiting/Diarrhea: acute on chronic GI upset per the patient. Continue PPI, antiemetics and pain control prn. Tobacco Use: counseled extensively on tobacco cessation. Pt Condition on Discharge: Good Discharge Disposition: Discharge Home Discharge Time: <= 30 minutes Discharge Instructions DIET: Follow Instructions for: Heart Healthy Diet Speech Therapy-Diet Recommends: Regular Activities you can perform: Regular-No Restrictions Other Activity Instructions: You should not drive. STOP smoking. It is very detrimental to your health and put you at more risk for stroke, heart attack and . Follow up Referrals: PCP Follow-up - 1 Week New Medications: Aspirin (Aspirin) 81 Mg Chew 162 MG CHEW DAILY #60 Ref 0 TAB Continued Medications: Hydroxyurea (Hydroxyurea) 500 Mg Cap 500 MG PO DAILY Ref 0 CAP Pantoprazole (Protonix) 40 Mg Tab 40 MG PO DAILY Reflux #30 Ref 0 TAB Promethazine (Promethazine) 12.5 Mg Tab 12.5 MG PO Q4H PRN NAUSEA OR VOMITING Ref 0 TAB Kuldeep De La Rosa MD Apr 13, 2016 13:01
[2016-04-13 13:17] LABS: HEMOGLOBIN A1a 1.5 %; HEMOGLOBIN A1b 0.9 %; HEMOGLOBIN Ao 82.8 %; HEMOGLOBIN F 2.3 %; HEMOGLOBIN LA1C 1.9 %; HEMOGLOBIN P3 6.1 %
== END 2016-04-13 14:38 | disposition home or self-care (01) | DRG 64 ==
LOC: NEPA 15:39 → NEDA 18:05 → NEDH 22:44 → HCIN 23:45
PROVIDERS: ADMIT Family Medicine; ATTEND Family Medicine
DX: I63.9 Cerebral infarction, unspecified (principal); I21.4 Non-ST elevation (NSTEMI) myocardial infarction; N17.9 Acute kidney failure, unspecified; D69.3 Immune thrombocytopenic purpura; H54.0 Blindness, both eyes; J44.9 Chronic obstructive pulmonary disease, unspecified; F17.210 Nicotine dependence, cigarettes, uncomplicated; D45 Polycythemia vera; K29.70 Gastritis, unspecified, without bleeding; K21.9 Gastro-esophageal reflux disease without esophagitis; E86.0 Dehydration; H57.04 Mydriasis; I10 Essential (primary) hypertension; M81.0 Age-related osteoporosis without current pathological fracture; Z79.82 Long term (current) use of aspirin; Z98.82 Breast implant status; D72.829 Elevated white blood cell count, unspecified
CPT/HCPCS: 70450; 70544; 70551; 78452; 80048; 80053; 80061; 81001; 82435; 82550; 82552; 82565; 82947; 83036; 84132; 84295; 84484; 84520; 85025; 85027; 85384; 85610; 85730; 86850; 86900; 86901; 87086; 93005; 93017; 93306; 93880; A9502; J0171; J0280; J0461; J2550; J2785; J7030; Q0169